=== PATIENT | male | born 1955 | race Caucasian/White ===

== ENCOUNTER 2017-10-22 13:17 | Emergency (ER) | payer MEDICAID, SELFPAY ==
[~2017-10-22] VITALS: Ht 193 cm; Wt 91.0 kg
[2017-10-22 13:18] VITALS: BP 118/72
== END 2017-10-22 13:41 | disposition home or self-care (01) ==
LOC: ED 13:35
DX: L03.113 Cellulitis of right upper limb (principal); L03.012 Cellulitis of left finger
CPT/HCPCS: 99283

== ENCOUNTER 2018-06-26 19:44 | Inpatient (IN) | payer MEDICAID ==
[~2018-06-26] VITALS: Ht 193 cm; Wt 78.6 kg
[2018-06-26] MEDS ORDERED: SODIUM CHLORIDE FLUSH 10ML SYR IVF ONE (20:00)
--- NOTE | 2018-06-26 20:45 | NUR ---
PT TO ROOM FROM LOBBY AT THIS TIME.
--- NOTE | 2018-06-26 20:55 | NUR ---
PT STATES WOUND LL EXTREMITY GETTING BIGGER OVER LAST COUPLE DAYS. STATES WOUNDxMULTIPLE MONTHS, REDNESS AND SWELLING ON LL EXTREMITY. PT HAS MULTIPLE WOUNDS ON R+BAILEY EXTREMITIES. MILD REDNESS AND SWELLING ON ARMS WELL. DENIES FEVERS. VSS. CMS INTACT. CALL LIGHT WITHIN REACH. Addendum: 06/26/18 at 2341 by DIANA PT STATES WOUND LL EXTREMITY GETTING BIGGER OVER LAST COUPLE DAYS. STATES WOUNDxMULTIPLE MONTHS, REDNESS AND SWELLING ON LR EXTREMITY. PT HAS MULTIPLE WOUNDS ON R+BAILEY EXTREMITIES. MILD REDNESS AND SWELLING ON ARMS WELL. DENIES FEVERS. VSS. CMS INTACT. CALL LIGHT WITHIN REACH.
--- NOTE | 2018-06-26 22:06 | NUR ---
LAB AT BEDSIDE.
[2018-06-26 22:15] LABS: BASOPHILS # (AUTO) 0.06 x10^3/uL (0-0.1); BASOPHILS % (AUTO) 1 % (0-1); EOSINOPHILS # (AUTO) 0.28 x10^3/uL (0-0.4); EOSINOPHILS % (AUTO) 3 % (1-7); LYMPHOCYTES # (AUTO) 1.14 x10^3/uL (1-3.4); LYMPHOCYTES % (AUTO) 10 % (22-44); MD NO; MEAN CORPUSCULAR HEMOGLOBIN 30.7 pg (27.5-34.5); MEAN CORPUSCULAR HGB CONC 33.4 g/dL (33.2-36.2); MEAN CORPUSCULAR VOLUME 91.8 fL (81-97); MEAN PLATELET VOLUME 6.3 fL (7.4-10.4); MONOCYTES # (AUTO) 0.77 x10^3/uL (0.2-0.8); MONOCYTES % (AUTO) 7 % (2-9); NEUTROPHILS % (AUTO) 80 % (42-75); PLATELET COUNT 342 x10^3/uL (130-400); RED BLOOD COUNT 3.81 x10^6/uL (4.38-5.82)
[2018-06-26 22:26] LABS: ALBUMIN 2.9 g/dL (3.4-5.0); ANION GAP 7 mmol/L (5-15); CALCIUM 8.4 mg/dL (8.5-10.1); CHLORIDE 107 mmol/L (98-107); CREATININE 0.89 mg/dL (0.7-1.3)
[2018-06-26] MEDS ORDERED: CLINDAMYCIN PMX 600MG/50ML 50 ML IV ONE (22:30)
[2018-06-26] MEDS ORDERED: CLINDAMYCIN PMX 600MG/50ML 50 ML ONE (23:13)
[2018-06-27 00:24] VITALS: BP 121/73
[2018-06-27 00:26] VITALS: BP 121/73
[2018-06-27] MEDS ORDERED: ONDANSETRON ODT 4 MG PO PRN (00:30)
[2018-06-27] MEDS ORDERED: VANCOMYCIN PER PHARMACY MC PRN (00:30)
[2018-06-27] MEDS ORDERED: BISACODYL 10 MG SUPP PR PRN (00:30)
[2018-06-27] MEDS ORDERED: POLYETHYLENE GLYCOL 17 GM PACKET PO PRN (00:30)
[2018-06-27] MEDS: KETOROLAC 30 MG/1 ML IV PRN ×2 (00:44→16:40)
[2018-06-27] MEDS: PIPERACILLIN/TAZO/PMX 3.375GM 50 ML IV SCH ×4 (00:45→20:13)
[2018-06-27] MEDS: HEPARIN 5,000 UNITS/ML, 1ML SQ SCH ×4 (00:46→23:55)
[2018-06-27] MEDS ORDERED: PHARMACOKINETIC CONSULTATION MC ONE (01:00)
[2018-06-27] MEDS ORDERED: PHARMACOKINETIC MONITORING MC PRN (01:00)
[2018-06-27] MEDS: VANCOMYCIN 1,500 MG in SODIUM CHLORIDE 0.9% 250 ML IV SCH ×2 (01:31→18:39)
[2018-06-27 01:34] VITALS: BP 121/73
[2018-06-27 05:46] LABS: ALBUMIN 2.5 g/dL (3.4-5.0); ANION GAP 6 mmol/L (5-15); CALCIUM 8.3 mg/dL (8.5-10.1); CHLORIDE 107 mmol/L (98-107)
[2018-06-27 05:49] LABS: ALANINE AMINOTRANSFERASE 14 U/L (12-78); ALKALINE PHOSPHATASE 79 U/L (45-117); BILIRUBIN,TOTAL 0.5 mg/dL (0.2-1.0); CREATININE 0.86 mg/dL (0.7-1.3); TOTAL PROTEIN 6.3 g/dL (6.4-8.2)
[2018-06-27 05:53] LABS: BASOPHILS # (AUTO) 0.03 x10^3/uL (0-0.1); BASOPHILS % (AUTO) 0 % (0-1); EOSINOPHILS % (AUTO) 4 % (1-7); LYMPHOCYTES # (AUTO) 1.57 x10^3/uL (1-3.4); LYMPHOCYTES % (AUTO) 16 % (22-44); MD NO; MEAN CORPUSCULAR HEMOGLOBIN 30.7 pg (27.5-34.5); MEAN CORPUSCULAR HGB CONC 33.6 g/dL (33.2-36.2); MEAN CORPUSCULAR VOLUME 91.5 fL (81-97); MEAN PLATELET VOLUME 6.6 fL (7.4-10.4); MONOCYTES # (AUTO) 0.91 x10^3/uL (0.2-0.8); MONOCYTES % (AUTO) 9 % (2-9); NEUTROPHILS # (AUTO) 6.76 x10^3/uL (1.8-6.8); NEUTROPHILS % (AUTO) 70 % (42-75); PLATELET COUNT 283 x10^3/uL (130-400); RED BLOOD COUNT 3.69 x10^6/uL (4.38-5.82)
[2018-06-27 07:33] VITALS: BP 114/64
[2018-06-27] MEDS: MULTIVITAMINS/MINERALS TABLET PO SCH (09:00)
[2018-06-27] MEDS: NICOTINE 21 MG/24 HR PATCH.TD24 TD SCH (09:00)
[2018-06-27] MEDS: SODIUM CHLORIDE FLUSH 10ML SYR IVF SCH ×2 (09:00→20:14)
[2018-06-27] MEDS: SENNA/DOCUSATE TABLET PO SCH (09:55)
[2018-06-27] MEDS: ACETAMINOPHEN 325 MG TABLET PO PRN ×2 (09:55→20:29)
[2018-06-27 16:00] VITALS: BP 108/83
[2018-06-27] MEDS: MUPIROCIN OINT 2%, 22GM TP SCH ×2 (16:40→20:13)
[2018-06-27 20:50] VITALS: BP 114/66
[2018-06-28 01:37] VITALS: BP 124/72
[2018-06-28] MEDS: PIPERACILLIN/TAZO/PMX 3.375GM 50 ML IV SCH ×4 (02:03→21:11)
[2018-06-28 07:49] VITALS: BP 135/77
[2018-06-28] MEDS: KETOROLAC 30 MG/1 ML IV PRN (07:55)
[2018-06-28] MEDS: MULTIVITAMINS/MINERALS TABLET PO SCH (07:59)
[2018-06-28] MEDS: HEPARIN 5,000 UNITS/ML, 1ML SQ SCH ×2 (07:59→16:54)
[2018-06-28] MEDS: SODIUM CHLORIDE FLUSH 10ML SYR IVF SCH ×2 (07:59→21:00)
[2018-06-28] MEDS: NICOTINE 21 MG/24 HR PATCH.TD24 TD SCH (08:00)
[2018-06-28] MEDS: MUPIROCIN OINT 2%, 22GM TP SCH ×3 (08:01→21:14)
[2018-06-28] MEDS: SENNA/DOCUSATE TABLET PO SCH (08:01)
[2018-06-28 12:20] VITALS: BP 117/73
[2018-06-28] MEDS ORDERED: MORPHINE SULFATE 4 MG/ML, 1ML IVPush PRN (14:30)
[2018-06-28] MEDS: VANCOMYCIN 1,500 MG in SODIUM CHLORIDE 0.9% 250 ML IV SCH (15:40)
[2018-06-28] MEDS: morphine SULFATE 10 MG/ML, 1ML IVPush PRN ×2 (16:55→22:36)
[2018-06-28 19:07] VITALS: BP 136/77
[2018-06-29] MEDS: HEPARIN 5,000 UNITS/ML, 1ML SQ SCH ×3 (00:30→17:42)
[2018-06-29 01:20] VITALS: BP 145/87
[2018-06-29] MEDS: PIPERACILLIN/TAZO/PMX 3.375GM 50 ML IV SCH ×2 (02:46→11:26)
[2018-06-29] MEDS: KETOROLAC 30 MG/1 ML IV PRN (02:50)
[2018-06-29 06:06] LABS: BASOPHILS # (AUTO) 0.03 x10^3/uL (0-0.1); BASOPHILS % (AUTO) 0 % (0-1); EOSINOPHILS # (AUTO) 0.24 x10^3/uL (0-0.4); EOSINOPHILS % (AUTO) 3 % (1-7); LYMPHOCYTES # (AUTO) 1.47 x10^3/uL (1-3.4); LYMPHOCYTES % (AUTO) 20 % (22-44); MD NO; MEAN CORPUSCULAR HEMOGLOBIN 30.4 pg (27.5-34.5); MEAN CORPUSCULAR HGB CONC 32.9 g/dL (33.2-36.2); MEAN CORPUSCULAR VOLUME 92.3 fL (81-97); MEAN PLATELET VOLUME 6.7 fL (7.4-10.4); MONOCYTES # (AUTO) 0.56 x10^3/uL (0.2-0.8); MONOCYTES % (AUTO) 8 % (2-9); NEUTROPHILS # (AUTO) 5.15 x10^3/uL (1.8-6.8); NEUTROPHILS % (AUTO) 69 % (42-75); PLATELET COUNT 332 x10^3/uL (130-400); RED CELL DISTRIBUTION WIDTH 14.7 % (9.4-14.8)
[2018-06-29 06:08] LABS: CHLORIDE 110 mmol/L (98-107)
[2018-06-29 06:24] LABS: ANION GAP 6 mmol/L (5-15); CALCIUM 8.4 mg/dL (8.5-10.1); CREATININE 0.89 mg/dL (0.7-1.3); VANCOMYCIN,TROUGH 13.2 mcg/mL (5.0-10.0)
[2018-06-29 07:07] LABS: HCT (SEDRATE) 37.8 % (39.2-51.8)
[2018-06-29 07:39] VITALS: BP 132/75
[2018-06-29] MEDS: SENNA/DOCUSATE TABLET PO SCH (09:00)
[2018-06-29] MEDS: SODIUM CHLORIDE FLUSH 10ML SYR IVF SCH ×2 (09:30→20:44)
[2018-06-29] MEDS: VANCOMYCIN 1,500 MG in SODIUM CHLORIDE 0.9% 250 ML IV SCH (09:31)
[2018-06-29] MEDS: MULTIVITAMINS/MINERALS TABLET PO SCH (12:45)
[2018-06-29] MEDS: NICOTINE 21 MG/24 HR PATCH.TD24 TD SCH (12:45)
[2018-06-29] MEDS: morphine SULFATE 10 MG/ML, 1ML IVPush PRN ×2 (12:46→17:44)
[2018-06-29] MEDS: MUPIROCIN OINT 2%, 22GM TP SCH ×3 (12:46→21:26)
[2018-06-29 16:05] VITALS: BP 126/78
[2018-06-29] MEDS: AMPICILLIN/SULBACTAM 3 GM in SODIUM CHLORIDE 0.9% 100 ML IV SCH (18:45)
[2018-06-29 19:20] VITALS: BP 123/70
[2018-06-29] MEDS ORDERED: VANCOMYCIN 1,500 MG in SODIUM CHLORIDE 0.9% 250 ML IV SCH (22:00)
[2018-06-30] MEDS: HEPARIN 5,000 UNITS/ML, 1ML SQ SCH ×4 (01:07→22:05)
[2018-06-30] MEDS: AMPICILLIN/SULBACTAM 3 GM in SODIUM CHLORIDE 0.9% 100 ML IV SCH ×2 (01:08→08:47)
[2018-06-30 01:16] VITALS: BP 134/80
[2018-06-30] MEDS: morphine SULFATE 10 MG/ML, 1ML IVPush PRN (05:55)
[2018-06-30 07:16] VITALS: BP 143/86
[2018-06-30] MEDS: SODIUM CHLORIDE FLUSH 10ML SYR IVF SCH ×2 (08:47→21:00)
[2018-06-30] MEDS: SENNA/DOCUSATE TABLET PO SCH (08:47)
[2018-06-30] MEDS: MULTIVITAMINS/MINERALS TABLET PO SCH (08:47)
[2018-06-30] MEDS: MUPIROCIN OINT 2%, 22GM TP SCH ×3 (08:48→21:38)
[2018-06-30] MEDS ORDERED: NICO-487 TD (09:42)
[2018-06-30] MEDS ORDERED: DOXY100T PO (09:42)
[2018-06-30] MEDS ORDERED: AMOX1TAB64 PO (09:42)
[2018-06-30] MEDS: NICOTINE 21 MG/24 HR PATCH.TD24 TD SCH (13:44)
[2018-06-30] MEDS: AMOXICILLIN/CLAV 875-125MG TABLET PO SCH ×2 (13:44→21:37)
[2018-06-30] MEDS: DOXYCYCLINE 100MG CAP PO SCH ×2 (13:44→21:37)
[2018-06-30 15:02] VITALS: BP 138/78
[2018-06-30 21:15] VITALS: BP 128/84
[2018-07-01 01:51] VITALS: BP 137/82
[2018-07-01 07:06] VITALS: BP 132/86
[2018-07-01] MEDS: SENNA/DOCUSATE TABLET PO SCH (09:00)
[2018-07-01] MEDS: AMOXICILLIN/CLAV 875-125MG TABLET PO SCH (10:36)
[2018-07-01] MEDS: DOXYCYCLINE 100MG CAP PO SCH (10:36)
[2018-07-01] MEDS: MULTIVITAMINS/MINERALS TABLET PO SCH (10:36)
[2018-07-01] MEDS: MUPIROCIN OINT 2%, 22GM TP SCH (10:36)
[2018-07-01] MEDS: HEPARIN 5,000 UNITS/ML, 1ML SQ SCH (10:37)
[2018-07-01] MEDS: KETOROLAC 30 MG/1 ML IV PRN (10:37)
[2018-07-01] MEDS: SODIUM CHLORIDE FLUSH 10ML SYR IVF SCH (10:37)
[2018-07-01] MEDS ORDERED: MULT-484 PO (12:13)
== END 2018-07-01 20:00 | disposition home or self-care (01) | DRG 603 ==
LOC: ED 22:10 → EDIP 23:18 → 3NE 06-27 00:20
PROVIDERS: ADMIT Internal Medicine; ATTEND Internal Medicine
DX: L03.115 Cellulitis of right lower limb (principal); E44.0 Moderate protein-calorie malnutrition; L97.209 Non-pressure chronic ulcer of unspecified calf with unspecified severity; L97.919 Non-pressure chronic ulcer of unspecified part of right lower leg with unspecified severity; D64.9 Anemia, unspecified; Z68.21 Body mass index [BMI] 21.0-21.9, adult; F17.210 Nicotine dependence, cigarettes, uncomplicated; Z59.0 Homelessness; Z71.6 Tobacco abuse counseling; D72.829 Elevated white blood cell count, unspecified
CPT/HCPCS: 36415; 80048; 80053; 80202; 82040; 85025; 85651; 86140; 87040; 87070; 87077; 87147; 87186; 87205; 96365; G0378; J0295; J1644; J1885; J2543; J3370; J2270; J7050

== ENCOUNTER 2018-08-06 16:49 | Emergency (ER) | payer MEDICAID ==
[~2018-08-06] VITALS: Ht 188 cm; Wt 88.4 kg
[~2018-08-06 16:49] MED LIST: AMOX1TAB64 PO; DOXY100T PO; MULT-484 PO; NICO-487 TD
[2018-08-06 17:55] LABS: BASOPHILS # (AUTO) 0.02 x10^3/uL (0-0.1); BASOPHILS % (AUTO) 0 % (0-1); EOSINOPHILS # (AUTO) 0.24 x10^3/uL (0-0.4); EOSINOPHILS % (AUTO) 3 % (1-7); LYMPHOCYTES # (AUTO) 0.97 x10^3/uL (1-3.4); LYMPHOCYTES % (AUTO) 13 % (22-44); MD NO; MEAN CORPUSCULAR HEMOGLOBIN 30.8 pg (27.5-34.5); MEAN CORPUSCULAR HGB CONC 33.6 g/dL (33.2-36.2); MEAN CORPUSCULAR VOLUME 91.8 fL (81-97); MEAN PLATELET VOLUME 6.3 fL (7.4-10.4); MONOCYTES # (AUTO) 0.34 x10^3/uL (0.2-0.8); MONOCYTES % (AUTO) 5 % (2-9); NEUTROPHILS % (AUTO) 79 % (42-75); PLATELET COUNT 337 x10^3/uL (130-400); RED BLOOD COUNT 4.47 x10^6/uL (4.38-5.82); RED CELL DISTRIBUTION WIDTH 14.4 % (9.4-14.8)
[2018-08-06 18:00] LABS: ALBUMIN 3.1 g/dL (3.4-5.0); ANION GAP 6 mmol/L (5-15); CALCIUM 8.7 mg/dL (8.5-10.1); CHLORIDE 106 mmol/L (98-107); CREATININE 0.83 mg/dL (0.7-1.3)
[2018-08-06] MEDS ORDERED: CEFTRIAXONE PMX 1GM/50ML 50 ML IVPB ONE (18:00)
[2018-08-06] MEDS ORDERED: CEFTRIAXONE PMX 1GM/50ML 50 ML ONE (18:16)
--- NOTE | 2018-08-06 18:31 | NUR ---
WOUND CLEANED WITH SOAP AND WATER AND NONADHERING DRESSING PLACED
[2018-08-06 18:36] VITALS: BP 117/70
== END 2018-08-06 20:11 | disposition home or self-care (01) ==
LOC: ED 19:30
DX: L03.115 Cellulitis of right lower limb (principal); Z59.0 Homelessness
CPT/HCPCS: 36415; 73590; 80048; 82040; 83605; 85025; 96365; 99284; J0696